=== PATIENT | male | born 1955 | race Caucasian/White ===

== ENCOUNTER 2020-03-25 15:40 | Emergency (ER) | payer OTHER ==
[~2020-03-25] VITALS: Ht 177.8 cm; Wt 95.3 kg
[2020-03-25 17:02] VITALS: BP 165/99
== END 2020-03-25 17:03 | disposition home or self-care (01) ==
LOC: M.ERS 15:40
DX: J06.9 Acute upper respiratory infection, unspecified (principal); Z20.828 Contact with and (suspected) exposure to other viral communicable diseases; Z88.0 Allergy status to penicillin